=== PATIENT | male | born 1955 | race Caucasian/White ===

== ENCOUNTER → 2017-01-08 | Outpatient (CLI) | payer BC | LOC: COL.RAD 10:30 | DX: Z90.49 Acquired absence of other specified parts of digestive tract (principal) ==

== ENCOUNTER → 2019-06-27 | Outpatient (CLI) | payer BC | LOC: COL.VAS 09:00 | DX: I36.1 Nonrheumatic tricuspid (valve) insufficiency (principal) ==

== ENCOUNTER → 2020-04-09 | Outpatient (CLI) | payer BC | LOC: ZCOL.LAB 16:03 | DX: Z01.818 Encounter for other preprocedural examination (principal); Z20.828 Contact with and (suspected) exposure to other viral communicable diseases ==

== ENCOUNTER 2020-10-19 12:56 | Day surgery (SDC) | payer BC ==
[2020-10-19] VITALS (10 sets, daily range): BP systolic 116–155; BP diastolic 67–98; PULSE 68–91; TEMP 98.1–98.3
[~2020-10-19] VITALS: Ht 182.9 cm; Wt 115.0 kg
[2020-10-19 13:41] LABS: HEMATOCRIT 39.3 % (42.0-52.0); HEMOGLOBIN 13.8 g/dl (13.5-18.0); MEAN CELL VOLUME 89 fl (80.0-100.0); MEAN CORPUSCULAR HEMOGLOBIN 31 pg (27.0-31.0); MEAN CORPUSCULAR HGB CONC 35 g/dl (33.0-37.0); MEAN PLATELET VOLUME 9.1 fl (7.4-10.4); PLATELET COUNT 248 K/mm3 (130-400); RED BLOOD COUNT 4.42 M/mm3 (4.20-5.60); REDCELL DISTRIBUTION WIDTH-CV 12.4 % (11.5-14.5)
[2020-10-19 13:48] LABS: CALCIUM 8.9 mg/dL (8.4-10.2); CREATININE, serum 0.85 (0.66-1.25); POTASSIUM 4.1 mmol/L (3.4-5.0)
[2020-10-19 13:50] LABS: INR 1.1 (0.8-3.0); PROTHROMBIN TIME 12.6 SECONDS (9.7-12.8)
[2020-10-19] MEDS ORDERED: BREO ELLIPTA 21 EACH IH (14:18)
[2020-10-19] MEDS ORDERED: PROAIR HFA0.09 MG/AC IH (14:18)
[2020-10-19] MEDS ORDERED: CELEXA40 MG PO (14:19)
[2020-10-19] MEDS ORDERED: CELEXA 20MG20 MG/TAB PO (14:20)
[2020-10-19] MEDS ORDERED: PLAVIX 75MG TAB75 MG PO (14:20)
[2020-10-19] MEDS ORDERED: DALIRESP500 MCG PO ×2 (14:21→14:22)
[2020-10-19] MEDS ORDERED: PROTONIX 40MG T40 MG PO (14:23)
[2020-10-19] MEDS ORDERED: LASIX 20MG TABL20 MG PO (14:23)
[2020-10-19] MEDS ORDERED: SPIRIVA RE2.5 MCG/Ac IH (14:24)
[2020-10-19] MEDS ORDERED: TRIAMCINOLONE A15 GM TOP (14:26)
--- NOTE | 2020-10-19 16:04 | NUR ---
SEE MERGE DOCUMENTATION FOR MEDICATION ADMINISTRATION TIMES AND INTRA/POST PROCEDURE SEDATION.
--- NOTE | 2020-10-19 17:36 | NUR ---
PT RETURNED FROM DRUGLESS DOCTOR. VSS DRESSING CLEAN, DRY AND INTACT. SITE IS SOFT NO NOTED HEMOTOMA OR BLEEDING. REPORT GIVEN TO RN THATIS RESUMING CARE.
--- NOTE | 2020-10-19 19:46 | NUR ---
PT HAS BEEN UP AND AMBULATORY TO BATHROOM WITH STEADY GAIT. RT GROIN SITE REMAINS SOFT DRESSING CLEAN AND DRY. CMS INTACT DISTAL. PT DID AMBULATE ON ROOM AIR TO BATHROOM, SATS 84% WHEN HE GOT BACK TO ROOM 12, BACK ON O2 3 LITERS, SATS BACK UP TO 95%. PT STATES THIS IS HIS NORM. WE HAVE REVIEWED DC AND FU INSTRUCTIONS, PT DENIES QUESTIONS. IV IS DC'D CATH INTACT, DRESSING APPLIED. PT HAS CALLED HIS FOR A RIDE.
--- NOTE | 2020-10-19 19:48 | NUR ---
TO EXIT VIA WHEELCHAIR. PT HAS PORTABLE OXYGEN AT 4L/NC. NO QUESTIONS AT TIME OF DEPARTURE.
== END 2020-10-19 20:20 | disposition home or self-care (01) ==
LOC: COL.CAR 12:56
PROVIDERS: Internal Medicine Interventional Cardiology
DX: I35.0 Nonrheumatic aortic (valve) stenosis (principal); I20.8 Other forms of angina pectoris; I73.9 Peripheral vascular disease, unspecified; J44.9 Chronic obstructive pulmonary disease, unspecified; Z79.899 Other long term (current) drug therapy; Z99.81 Dependence on supplemental oxygen; Z20.822 Contact with and (suspected) exposure to COVID-19; Z82.3 Family history of stroke
CPT/HCPCS: C1760; C1769; C1894; J1644; J3010; Q9967

== ENCOUNTER 2020-12-19 11:02 | Outpatient (RCR) | payer BC ==
[~2020-12-19 11:02] MED LIST: BREO ELLIPTA 21 EACH IH; CELEXA 20MG20 MG/TAB PO; CELEXA40 MG PO; DALIRESP500 MCG PO; LASIX 20MG TABL20 MG PO; PLAVIX 75MG TAB75 MG PO; PROAIR HFA0.09 MG/AC IH; PROTONIX 40MG T40 MG PO; SPIRIVA RE2.5 MCG/Ac IH; TRIAMCINOLONE A15 GM TOP
== END 2021-03-19 | disposition home or self-care (01) ==
LOC: COL.CR
DX: Z48.812 Encounter for surgical aftercare following surgery on the circulatory system (principal); Z95.2 Presence of prosthetic heart valve; J44.9 Chronic obstructive pulmonary disease, unspecified

== ENCOUNTER → 2021-03-28 | Outpatient (CLI) | payer BC ==
[2021-03-28 08:06] LABS: ARTERIAL BLD GAS O2 SATURATION 96.6 % (92-100); ARTERIAL BLD GAS TCO2 CT 34.8; ARTERIAL BLOOD GAS BASE EXCESS 5.9 (-2-2); ARTERIAL BLOOD GAS PCO2 57.7 mmHg (35-45); ARTERIAL BLOOD GAS PO2 90.1 mmHg (80-100); ARTERIAL BLOOD GAS pH 7.38 (7.35-7.45)
--- NOTE | 2021-03-28 09:53 | NUR ---
ABG RESULTS REPORTED.
== END ==
LOC: COL.PUL 03-14 07:30
PROVIDERS: Internal Medicine Pulmonary Disease
DX: Z01.818 Encounter for other preprocedural examination (principal); Z87.891 Personal history of nicotine dependence

== ENCOUNTER → 2021-07-26 | Outpatient (CLI) | payer BC, MEDICARE | LOC: COL.RAD 07-24 11:15 | DX: M51.27 Other intervertebral disc displacement, lumbosacral region (principal) ==

== ENCOUNTER 2021-08-14 07:24 | Day surgery (SDC) | payer BC, MEDICARE ==
[~2021-08-14] VITALS: Ht 182.9 cm; Wt 105.6 kg
--- NOTE | 2021-08-14 07:45 | NUR ---
Patient is alert and oriented x3, admitted to bay 7 with a steady gait and no assistive devices. Medications and HX reviewed. Procedure verified and consent signed. Physical assessment completed, see physical assessment. IV started in L hand on first attempt. IVF infusing without difficulty. Labs drawn and sent via tech. Lab results are on chart. IV set to 100 ml/hr. Warm blanket provided. Non-slip socks are on. Call tyson is at bedside. Side rails x2. Patient is currently watching TV.
[2021-08-14] MEDS ORDERED: ULTRAM 50MG TAB50 MG PO (08:11)
[2021-08-14] MEDS ORDERED: PROTONIX 40MG T40 MG PO (08:12)
[2021-08-14] MEDS ORDERED: PREDNISONE20 MG PO (08:12)
[2021-08-14] MEDS ORDERED: NEURONTIN300 MG/CAP PO (08:13)
[2021-08-14] MEDS ORDERED: COZAAR 50MG50 MG/TAB PO (08:13)
[2021-08-14] MEDS ORDERED: LASIX 20MG TABL20 MG PO (08:13)
[2021-08-14] MEDS ORDERED: DALIRESP500 MCG PO (08:14)
[2021-08-14] MEDS ORDERED: PLAVIX 75MG TAB75 MG PO (08:15)
[2021-08-14] MEDS ORDERED: CELEXA 20MG20 MG/TAB PO (08:16)
[2021-08-14] MEDS ORDERED: CELEXA40 MG PO (08:16)
[2021-08-14] MEDS ORDERED: BREO ELLIPTA 21 EACH IH (08:16)
[2021-08-14 08:22] VITALS: BP 125/73; PULSE 99; TEMP 97.6
--- NOTE | 2021-08-14 08:35 | NUR ---
LABS DRAWN AND GIVEN TO [employer].
[2021-08-14 08:38] LABS: BASO # 0.1 K/mm3 (0.0-0.2); BASO % 0.6 % (0.0-2.0); EOS # 0.1 K/mm3 (0.0-0.7); EOS % 0.8 % (0.0-4.0); GRAN # 6.3 K/mm3 (1.4-6.5); GRAN % 75.4 % (42.2-75.2); HEMATOCRIT 38.4 % (42.0-52.0); HEMOGLOBIN 13.4 g/dl (13.5-18.0); LYMPH # 1.3 K/mm3 (1.2-3.4); LYMPH % 15.7 % (20.0-51.0); MEAN CELL VOLUME 88 fl (80.0-100.0); MEAN CORPUSCULAR HEMOGLOBIN 31 pg (27-31); MEAN CORPUSCULAR HGB CONC 35 g/dl (33.0-37.0); MEAN PLATELET VOLUME 9.2 fl (7.4-10.4); MONO # 0.6 K/mm3 (0.1-0.6); PLATELET COUNT 249 K/mm3 (130-400); RED BLOOD COUNT 4.38 M/mm3 (4.20-5.60); REDCELL DISTRIBUTION WIDTH-CV 12.8 % (11.5-14.5)
[2021-08-14 09:21] LABS: ALBUMIN 3.6 gm/dL (3.4-4.8); BILIRUBIN,TOTAL 1.2 mg/dL (0.2-1.2); CALCIUM 9.6 mg/dL (8.4-10.2); CREATININE, serum 0.88 mg/dL (0.72-1.25); POTASSIUM 4.1 mmol/L (3.5-4.5); TOTAL PROTEIN 6.7 gm/dL (6.2-8.1)
[2021-08-14] MEDS ORDERED: NORCO 325 MG-51 TAB PO (10:34)
[2021-08-14 10:35] VITALS: BP 134/65; PULSE 111; TEMP 97.7
--- NOTE | 2021-08-14 10:35 | NUR ---
Patient arrived on cart from OR, recieved moderate sedation. Report obtained from SATURNINO Crawford and the FIRST AID DIRECTOR. Patient is sleepy, however can answer basic questions. Vitals obtained. , Humaira is present.
[2021-08-14 10:50] VITALS: BP 135/67; PULSE 98
--- NOTE | 2021-08-14 10:50 | NUR ---
Patient is more alert and oritented x3. Vitals obtained. 02 continues at 5 L. Call tyson is at bedside. Side rails x2
[2021-08-14 11:05] VITALS: BP 115/65; PULSE 75
--- NOTE | 2021-08-14 11:05 | NUR ---
Patient requested apple juice and ice cream. Patient is tolerating it well. Vitals obtained. Denies pain. Call tyson is within reach.
[2021-08-14 11:20] VITALS: BP 113/68; PULSE 77
--- NOTE | 2021-08-14 11:20 | NUR ---
IV discontinued at this time. Catheter tip intact. Pressure dressing applied. No redness or swelling noted. Patient was escorted to the bathroom. Dressing was replaced with new 4x4's and an ABD pad. Other materials provided to for at home dressing care: 4x4's, ABD pads, moist cloth wipes, and a second pair of breifs. Patient was escorted back to his bay. Denies needing assistance changing, is present and willing to help. Vitals obtained.
--- NOTE | 2021-08-14 11:45 | NUR ---
Discharge instructions reviewed at this time with the patient and his . Educational material reviewed as well. Patient and his verbalized understanding of discharge information. RN called DR office for follow up appointment. 12 packs of 4x4's, 4 ABD pads, two packs of moist cloth wips and one additional breif provided.
--- NOTE | 2021-08-14 12:10 | NUR ---
Patient was escorted out to the patient entrence by SATURNINO Manrique along with his . Patient has his personal belongings including his personal O2 tank, educational material and discharge information. Patient was given an extra apple juice and an orange ice cream to take home. Patient verbalized understanding of all discharge information and denied further questions or concerns. Patients has the discharge information and the supplies in hand. Patient was transferred into the care of his Humaira at this time, who is present to drive.
== END 2021-08-14 12:10 | disposition home or self-care (01) ==
LOC: SDCO 07:24
PROVIDERS: Surgery
DX: Z12.11 Encounter for screening for malignant neoplasm of colon (principal); D12.3 Benign neoplasm of transverse colon; D12.5 Benign neoplasm of sigmoid colon; D12.8 Benign neoplasm of rectum; E88.01 Alpha-1-antitrypsin deficiency; J43.1 Panlobular emphysema; K64.1 Second degree hemorrhoids; Z86.010 Personal history of colon polyps; Z79.899 Other long term (current) drug therapy; Z79.891 Long term (current) use of opiate analgesic; Z79.02 Long term (current) use of antithrombotics/antiplatelets; Z90.49 Acquired absence of other specified parts of digestive tract
CPT/HCPCS: J2250; J2300; J2704; J3010; J7120